=== PATIENT | female | born 1955 | race Caucasian/White ===

== ENCOUNTER → 2021-05-24 10:49 | Outpatient (BNVA) | payer MEDICAID, SELFPAY | PROVIDERS: Visit Provider Family Medicine Adult Medicine | DX: I10 Essential (primary) hypertension (principal); E11.9 Type 2 diabetes mellitus without complications | CPT/HCPCS: 80053; 83036; 84443; 85025 ==

== ENCOUNTER → 2021-06-29 08:32 | Outpatient (BNVA) | payer MEDICAID, SELFPAY | PROVIDERS: Visit Provider Psychiatry & Neurology Psychiatry | DX: F41.9 Anxiety disorder, unspecified (principal); F32.A Depression, unspecified; F32.9 Major depressive disorder, single episode, unspecified; Z03.89 Encounter for observation for other suspected diseases and conditions ruled out | CPT/HCPCS: 90792; 80061 ==

== ENCOUNTER → 2021-08-31 13:38 | Outpatient (BNVA) | payer MEDICAID, SELFPAY | PROVIDERS: Visit Provider Psychiatry & Neurology Psychiatry | DX: F41.9 Anxiety disorder, unspecified (principal); F32.A Depression, unspecified; F32.9 Major depressive disorder, single episode, unspecified; G31.84 Mild cognitive impairment of uncertain or unknown etiology | CPT/HCPCS: 99214 ==

== ENCOUNTER 2021-10-26 13:21 | Inpatient (IN) | payer MEDICAID, SELFPAY ==
[2021-10-26] VITALS (7 sets, daily range): BP systolic 144–207; BP diastolic 86–134; PULSE 78–109; RESP 18–22; TEMP 36.4–37.2; O2SAT 95–99; BMI 30.4
--- NOTE | 2021-10-26 14:51 | PC.PHAR ---
PT UNABLE TO VERIFY DUE TO BEING ALTERED. SCRIPTS VERIFIED USING [facility] AND EXTERNAL MED LIST
--- NOTE | 2021-10-26 14:57 | ED.C_ITS ---
HPI - Psych General: Chief Complaint: Psychiatric Symptoms Stated Complaint: Mental eval Time Seen by Provider: 10/26/21 14:01 Source: patient and family (Daughter and son-in-law) Mode of arrival: ambulatory Limitations: no limitations History of Present Illness: This patient was transported to the emergency department by her family. Her daughter and son-in-law state that over the past several months her behavior is becoming more and more erratic. They state that she is not taking her prescribed medications as prescribed. She currently lives with her daughter. Daughter has transported her here for further evaluation. Patient is unclear why she is in the emergency department she thought she was coming to visit her doctor. She denies any thoughts of self-harm. She denies any visual or auditory hallucinations. She does admit that she has felt depressed in the past and is have been prescribed medications. She relates that she takes her diabetic medications and other prescribed medications as well. She denies any other constitutional complaints at this time. She denies alcohol or drug use. She denies any prior hospitalizations for mental illness. Duration: changing over time and getting worse Associated symptoms: Reports depression; Deny auditory hallucinations, visual hallucinations, homicidal ideation or suic idal ideation Review of Systems Const: Denies: fever(s), chills or body aches Eyes: Denies: change in vision ENMT: Denies: throat pain, odynophagia or change in hearing Card: Denies: chest pain, palpitations, irregular heart rhythm or syncope Resp: Denies: dyspnea, productive cough or non-productive cough GI: Denies: abdominal pain, nausea, vomiting or diarrhea : Denies: flank pain, difficulty voiding, dysuria, urinary frequency, vaginal bleeding or vaginal discharge Musc: Denies: neck pain, back pain, extremity pain or extremity swelling Skin/Breast: Denies: rash or pruritus Neuro: Denies: headache(s), numbness in extremities or weakness in extremities Psych: Reports: anxiety, depression and mood swings; Denies: visual hallucinations, auditory hallucinations, suicidal ideation or homicidal ideation Endo: Denies: polyuria or polydipsia [facility] ED PFSH: Medical History Anxiety Diabetes type 2, controlled Hypertension MDD (major depressive disorder) Mild cognitive impairment Psychiatric care Stool incontinence Surgical History Hx of tonsillectomy Hx of tubal ligation Social History Smoking and tobacco status: never smoked Second hand smoke exposure: No Smoking risk assessment/counseling performed?: No Alcohol intake: never Marital status: Single Current occupational status: disabled Physical Exam Narrative: EXAM NARRATIVE: Patient makes good eye contact. She displays very rapid and pressured speech with flight of ideas. Const: COMMON NORMALS: patient oriented x3 and alert GENERAL APPEARANCE: cooperative and anxious ORIENTATION/CONSCIOUSNESS: Yes awake HENMT: COMMON NORMALS: normocephalic, Normal nasal mucous membranes and turbinates present and moist oral mucous membranes HEAD & SCALP: normocephalic NOSE: Normal nasal mucous membranes and turbinates present Eye: COMMON NORMALS: Equal, round and reactive pupils present, EOMs intact bilaterally and conjunctivae normal CONJUNCTIVA: Yes conjunctivae normal PUPIL: Yes Equal, round and reactive pupils present Neck/C-Spine: COMMON NORMALS: full ROM and supple Chest: COMMONS NORMALS: normal inspection of the chest Resp: COMMON NORMALS: normal respiratory effort, No retractions, No use of accessory muscles and clear to auscultation bilaterally AUSCULTATION: clear to auscultation bilaterally Cardio: COMMON NORMALS: regular rate, regular rhythm and Peripheral pulses 2+ throughout RATE: regular rate RHYTHM: regular rhythm PERIPHERAL PULSES: Peripheral pulses 2+ throughout GI: COMMON NORMALS: Normal to inspection, nondistended, normoactive bowel sounds present : COMMON NORMALS: Yes no CVA tenderness BLADDER/KIDNEY EXAM: Yes no CVA tenderness Back/Pelvis: COMMON NORMALS: no CVA tenderness, thoracic and lumbar spine normal to inspection, no thoracic nor lumbar tenderness and thoraco-lumbar ROM normal Extremity: COMMON NORMALS: normal to inspection, full ROM, capillary refill normal and no pedal edema Neuro: COMMON NORMALS: patient oriented x3, moves all extremities, no sensory deficits noted and gait normal SENSORIUM/ORIENTATION: Yes alert Psych: COMMON NORMALS: cooperative ATTITUDE: Yes evasive and Yes agitated ACTIVITY/MOTOR BEHAVIOR: Yes appropriate eye contact and Yes disorganized behavior SPEECH: Yes excessive, Yes rapid and Yes Pressured speech present MOOD & AFFECT: Yes elevated mood and Yes irritable THOUGHT PROCESS: disorganized and Flight of ideas present ATTENTION/CONCENTRATION: Yes attention grossly intact INSIGHT: Limited insight present (Psych) JUDGEMENT: Limited judgement present (Psych) Skin: COMMON NORMALS: no rashes or lesions noted and turgor normal GENERAL SKIN EXAM: no rashes or lesions noted and turgor normal Course Vital Signs: Vital signs: Vital Signs Temperature 98.3 F 10/26/21 15:32 Pulse Rate 78 10/26/21 15:32 Respiratory Rate 18 10/26/21 15:32 Blood Pressure 207/134 10/26/21 15:32 Pulse Oximetry 99 10/26/21 15:32 MDM - Psych Medical Decision Making Patient with a history of chronic anxiety as well as underlying schizophrenia who has had some behavioral changes over the past weeks brought to the emergency department by her concern family. Medical screening examination was performed and she has no evidence at this time of a concomitant medical condition that might be contributing to her current history of behavioral changes. Discussed with family and patient and they are agreeable to inpatient evaluation and adjustment in medications as indicated. Consulted psychiatry who agreed to admission. Differential Diagnosis Likely chronic schizophrenia and acute anxiety Medical Records I reviewed the patient's medical records. Lab Data I reviewed the patient's lab results. : 10/26/21 16:04 10/26/21 16:04 Laboratory Results WBC 10.0 10^3/uL (4.0-10.0) 10/26/21 16:04 RBC 5.15 10^6/uL (4.1-5.3) 10/26/21 16:04 Hgb 15.0 g/dL (11.5-15.3) 10/26/21 16:04 Hct 44.7 % (37.0-47.0) 10/26/21 16:04 MCV 86.8 fl (81-99) 10/26/21 16:04 MCH 29.1 pg (28.0-34.0) 10/26/21 16:04 MCHC 33.6 g/dL (30.0-36.0) 10/26/21 16:04 RDW 12.9 % (12.1-15.1) 10/26/21 16:04 Plt Count 346 10^3/cmm (130-400) 10/26/21 16:04 MPV 10.3 fL (7.4-10.4) 10/26/21 16:04 Neut % (Auto) 71.3 % 10/26/21 16:04 Lymph % (Auto) 18.2 % 10/26/21 16:04 Emmons % (Auto) 7.7 % 10/26/21 16:04 Eos % (Auto) 1.4 % 10/26/21 16:04 Baso % (Auto) 1.1 % 10/26/21 16:04 Neut # (Auto) 7.10 10^3/uL (1.8-7.7) 10/26/21 16:04 Lymph # (Auto) 1.8 10^3/uL (0.8-4.8) 10/26/21 16:04 Emmons # (Auto) 0.8 10^3/uL (0.2-0.9) 10/26/21 16:04 Eos # (Auto) 0.1 10^3/uL (0.0-0.8) 10/26/21 16:04 Baso # (Auto) 0.1 10^3/uL (0.0-0.1) 10/26/21 16:04 Nucleated RBC % (auto) 0 % 10/26/21 16:04 Nucleated RBCs # 0.0 /100WBC 10/26/21 16:04 Sodium 139 mmol/L (136-145) 10/26/21 16:04 Potassium 4.3 mmol/L (3.5-5.1) 10/26/21 16:04 Chloride 106 mmol/L (98-107) 10/26/21 16:04 Carbon Dioxide 21 mmol/L (22-29) L 10/26/21 16:04 Anion Gap 16.3 (5-19) 10/26/21 16:04 BUN 15 mg/dL (8-23) 10/26/21 16:04 Creatinine 0.8 mg/dL (0.5-0.9) 10/26/21 16:04 GFR Calculation 72.2 mL/min (90-130) L 10/26/21 16:04 Glucose 144 mg/dL (65-115) H 10/26/21 16:04 Calculated Osmolality 291 mOsm/kg (285-295) 10/26/21 16:04 Calcium 10.1 mg/dL (8.5-10.5) 10/26/21 16:04 Total Bilirubin 0.2 mg/dL (0.15-1.2) 10/26/21 16:04 AST 16 U/L (0-32) 10/26/21 16:04 ALT 16 U/L (0-33) 10/26/21 16:04 Alkaline Phosphatase 71 IU/L (35-105) 10/26/21 16:04 Total Protein 7.7 g/dL (6.6-8.7) 10/26/21 16:04 Albumin 4.2 g/dL (3.5-5.2) 10/26/21 16:04 Globulin 3.5 g/dL (1.3-4.6) 10/26/21 16:04 TSH 2.15 uIU/mL (0.27-4.20) 10/26/21 16:04 Salicylates < 0.3 mg/dL (3-10) L 10/26/21 16:04 Acetaminophen < 5.0 ug/mL (10-30) L 10/26/21 16:04 Discharge Plan Discharge Patient Disposition: Admitted As Inpatient Clinical Impression: Chronic schizophrenia, Anxiety, Diabetes type 2, controlled Condition: Stable Prescriptions: No Action (DME) blood-glucose meter Misc See Rx Instructions .Route Qty: 1 0RF Rx Instructions: As directed once daily (DME) Accu-Chek Guide test strips Strip See Rx Instructions .Route Qty: 50 0RF Rx Instructions: As directed, TEST BLOOD SUGAR, ONCE, DAILY. (DME) lancets [BD Ultra Fine Lancets] 33 gauge misc See Rx Instructions .Route Qty: 100 0RF Rx Instructions: As directed, TEST BLOOD SUGAR, ONCE, DAILY. metformin 500 mg tablet 500 mg PO DAILY Qty: 30 5RF quetiapine 200 mg tablet 200 mg PO .HS 30 Days Qty: 30 3RF bupropion HCl 150 mg tablet extended release 24 hr 150 mg PO QAM 30 Days Qty: 30 3RF fluoxetine 40 mg capsule 40 mg PO QAM Qty: 30 3RF lisinopril 20 mg tablet 10 mg PO DAILY Qty: 30 3RF Referrals: Yaya Gómez MD [Primary Care Provider] - Coding Level of Care Code ED [place] [employer] Machine Operator for Chg Fwd Exam Comprehensive
[2021-10-26 16:10] LABS: Basophils # 0.1 10^3/uL (0.0-0.1); Basophils % 1.1 %; Eosinophils # 0.1 10^3/uL (0.0-0.8); Eosinophils % 1.4 %; Hematocrit 44.7 % (37.0-47.0); Lymphocytes # 1.8 10^3/uL (0.8-4.8); Lymphocytes % 18.2 %; Mean Corpuscular HGB Conc 33.6 g/dL (30.0-36.0); Mean Corpuscular Hemoglobin 29.1 pg (28.0-34.0); Mean Corpuscular Volume 86.8 fl (81-99); Mean Platelet Volume 10.3 fL (7.4-10.4); Monocytes # 0.8 10^3/uL (0.2-0.9); Monocytes % 7.7 %; Neutrophils % 71.3 %; Nucleated Red Blood Cells % 0 %; Platelet Count 346 10^3/cmm (130-400); Red Blood Count 5.15 10^6/uL (4.1-5.3); Red Cell Distribution Width 12.9 % (12.1-15.1)
[2021-10-26 16:55] LABS: Alanine Aminotransferase 16 U/L (0-33); Albumin Level 4.2 g/dL (3.5-5.2); Alkaline Phosphatase 71 IU/L (35-105); Anion Gap 16.3 (5-19); Aspartate Amino Transferase 16 U/L (0-32); Blood Urea Nitrogen 15 mg/dL (8-23); Calcium 10.1 mg/dL (8.5-10.5); Carbon Dioxide 21 mmol/L (22-29); Chloride 106 mmol/L (98-107); Globulin 3.5 g/dL (1.3-4.6); Glomerular Filtration Rate 72.2 mL/min (90-130); Glucose 144 mg/dL (65-115); Osmolality Calculated 291 mOsm/kg (285-295); Potassium 4.3 mmol/L (3.5-5.1); Sodium 139 mmol/L (136-145); Thyroid Stimulating Hormone 2.15 uIU/mL (0.27-4.20); Total Bilirubin 0.2 mg/dL (0.15-1.2); Total Protein 7.7 g/dL (6.6-8.7)
[2021-10-26 16:59] LABS: Acetaminophen < 5.0 ug/mL (10-30); Salicylate < 0.3 mg/dL (3-10)
--- NOTE | 2021-10-26 18:38 | PC.ADMIT ---
[facility] Admission Note: The patient,Tennille Barrientos,65 y/o, was given written information regarding hospital policies, unit procedures and contact persons. Patient's smoking status: never smoked. Vital Signs - 8 hr 10/26/21 13:39 10/26/21 14:48 10/26/21 15:32 Temperature 97.6 F 98.3 F 98.3 F Pulse Rate 105 H 78 78 Respiratory Rate 18 18 18 Blood Pressure 184/100 207/134 207/134 Pulse Oximetry 97 99 99 10/26/21 18:32 Temperature 98.5 F Pulse Rate 101 H Respiratory Rate 22 H Blood Pressure 169/116 Pulse Oximetry 95 PT ADMITTED TO NPU FROM ED VIA AT 1813. PT CAN NOT STATE WHY SHE IS HERE. STATES, I'M ONLY HERE FOR A FEW DAYS. PT HAS FLIGHT OF IDEAS, PRESSURED SPEECH AND RAMBLINGS. DIFFICULT TO KEEP ON TRACK. PT UNABLE TO TELL ME THE DATE OR WHERE SHE IS BUT DOES KNOW WHO SHE IS. PT IS VOLUNTARY STATUS. SKIN ASSESSMENT UNREMARKABLE. ABLE TO AMBULATE INDEPENDENTLY. PT HAS NKDA. PT CAN NOT TELL ME WHAT MEDICATIONS SHE TAKES BUT THINKS SHE TAKES PROZAC 40 MG. ORIENTATED TO UNIT. WENT TO DAY AREA TO WATCH TV. ALL QUESTIONS ANSWERED AND SUPPORT VOICED.
[2021-10-26] MEDS: lisinopril 20 mg Tablet PO (19:10)
[2021-10-26] MEDS: hyDROXYzine 25 mg Capsule 50 MG PO (20:23)
[2021-10-27] MEDS: lisinopril 20 mg Tablet PO (08:41)
[2021-10-27 13:32] VITALS: BP 170/93; PULSE 107; RESP 18; TEMP 36.6; O2SAT 97
--- NOTE | 2021-10-27 13:54 | P.NPUHP_ITS ---
Providers/Chief Complaint Admitting Physician: Casey Carter MD Primary Care Provider: Yaya Gómez MD Chief Complaint: Mental eval HPI NPU History of Present Illness Tennille Barrientos is a 65 year old female who presented to the emergency department with the following report: Chief Complaint: Psychiatric Symptoms Stated Complaint: Mental eval Time Seen by Provider: 10/26/21 14:01 Source: patient and family (Daughter and son-in-law) Mode of arrival: ambulatory Limitations: no limitations History of Present Illness: This patient was transported to the emergency department by her family. Her daughter and son-in-law state that over the past several months her behavior is becoming more and more erratic. They state that she is not taking her prescribed medications as prescribed. She currently lives with her daughter. Daughter has transported her here for further evaluation. Patient is unclear why she is in the emergency department she thought she was coming to visit her doctor. She denies any thoughts of self-harm. She denies any visual or auditory hallucinations. She does admit that she has felt depressed in the past and is have been prescribed medications. She relates that she takes her diabetic medications and other prescribed medications as well. She denies any other constitutional complaints at this time. She denies alcohol or drug use. She denies any prior hospitalizations for mental illness. Duration: changing over time and getting worse Associated symptoms: Reports depression; Deny auditory hallucinations, visual hallucinations, homicidal ideation or suicidal ideation. He was admitted to the neuropsychiatric unit for definitive treatment of those issues.She presents today reporting she doesn?t believe she needs to be here. This is a 65 year old female initially admitted voluntarily. The patient was transported to the emergency department by her family and her son and [id number] report that her behavior has been more erratic and she had been non compliant with her medications for anxiety and depression. There had been reports that she was having increased problems with her memory. She denies any thoughts of hurting herself during the interview. She denies auditory or visual hallucinations. She states that her daughter had accused her of walking around the house naked but endorses she had done nothing of the sort. She reports that she is new to [place] [facility] [place] and reports that she had come here approximately 6 months ago to live here. She endorses having been psychiatrically hospitalized 3 or 4 times approximately 20 years ago. She was not able to elucidate the reason for her hospitalization but reports she had been treated previously for depression and anxiety. Outpatient treatment appeared significant from a recent follow up at [facility] by Zabrina Francisco in June 2021 with a history of treatment for anxiety, depression and cognitive impairment. She denies any tobacco, reports alcohol in the past, denies marijuana currently but reports she tried in the past, or any other illicit drug use. She reports she grew up in [place] most of her life until she resumed living with her daughter approximately 2 months ago. Psychiatric History: As above. Substance Abuse History: As above Family History: There is significant depression in her children but no reports of mental health or addictions issues on either side of her extended family. Developmental History: She did not report any developmental delays and denied needing any speech therapy, learning support, emotional support or special education classes. Psychosocial History: She was born in [place] and raised by both of her parents. Her father was in the [place] and she has one older sister who is a product of the same union. She graduated from high school. She has been and once, has 4 child christofer, has never been in the , and endorses being spiritism Legal History: She did not report any legal history during the interview. Medical History: Medical history is significant for diabetes and bronchitis. Surgical history is significant for tonsillectomy. She is allergic to yellow jacket stings. Meds NPU Home Medications Medication Instructions Recorded Confirmed Last Taken Type blood sugar diagnostic (Accu-Chek #50 ea 05/24/21 10/26/21 Unknown Rx Guide test strips) blood-glucose meter #1 ea 05/24/21 10/26/21 Unknown Rx lancets 33 gauge (BD Ultra Fine #100 ea 05/24/21 10/26/21 Unknown Rx Lancets) metformin 500 mg tablet 500 mg PO DAILY #30 tab 07/04/21 10/26/21 Unknown Rx bupropion HCl 150 mg 24 hr tablet, 150 mg PO QAM 30 Days #30 tab 08/31/21 10/26/21 Unknown Rx extended release fluoxetine 40 mg capsule 40 mg PO QAM #30 cap 08/31/21 10/26/21 Unknown Rx quetiapine 200 mg tablet 200 mg PO .HS 30 Days #30 tab 08/31/21 10/26/21 Unknown Rx lisinopril 20 mg tablet 10 mg PO DAILY #30 tab 10/19/21 10/26/21 Unknown Rx Allergies Allergy/AdvReac Type Severity Reaction Status Date / Time No Known Allergies Allergy Verified 10/26/21 14:55 PFSH NPU PFSH: Medical History Anxiety Diabetes type 2, controlled Hypertension MDD (major depressive disorder) Mild cognitive impairment Psychiatric care Stool incontinence Surgical History Hx of tonsillectomy Hx of tubal ligation Social History Smoking and tobacco status: never smoked Second hand smoke exposure: No Smoking risk assessment/counseling performed?: No Alcohol intake: never Marital status: Single Current occupational status: disabled Mental Status Exam MSE Comments: This is a well nourished, well developed female in hospital scrubs with adequate grooming and eye contact. No abnormal movements. Cooperative with exam in no acute distress. Speech was somewhat rapid with increased push. Mood described as okay, affect is congruent with some measure of increased anxiety. Thought process, mostly organized. Thought content: patient denies suicidal or homicidal ideation, no delusions reported but some paranoid process noted, and denies auditory or visual hallucinations. Attention and concentration appear somewhat intact and memory appeared limited though none were formally tested. She is alert and oriented three times but did not orient to time. Insight and judgment are limited. Impulse control is limited. Vitals/I&O/Wt Last Vital Signs Temp 97.8 F 10/27/21 13:32 Pulse 107 H 10/27/21 13:32 Resp 18 10/27/21 13:32 BP 170/93 10/27/21 13:32 Pulse Ox 97 10/27/21 13:32 Weight last 48 hrs Weight 83.007 kg Data NPU : 10/26/21 16:04 10/26/21 16:04 A&P Assessment and plan (1) Dementia associated with other underlying disease with behavioral disturbance: Status: Acute (2) Bipolar disorder, current condition not specified as either manic or depressive: Status: Acute (3) Anxiety: Status: Acute (4) Mild cognitive impairment: Status: Acute Plan This is a 65 year old female with a past history of depression and anxiety who has been reportedly non compliant with her medications, appearing to have dif ficulties with her memory at this time requiring a more detailed mental status examination to rule out dementia. 1. Restart Wellbutrin 150 mg po q am and Prozac 40 mg po q daily 2. Encourage individual, group and milieu therapy 3. Continue q-15 minute check for safety 4. Will obtain further collateral information from the patient?s family. Involuntary Hold Information 96 Hour Hold: 96 Hour Involuntary Admission: No Attestations NPU Medical Necessity Statement*: Inpatient hospitalization is medically necessary and the clinically appropriate intervention at this time. We will monitor medications and make changes as indicated. Patient will be in the hospital for over two midnights. Likely length of stay is three to five days. Coding Level of Care Code Acute Adjustment Examiner for Teresa Chaidez Diagnoses Dementia associated with other underlying disease with behavioral disturbance F02.81 Bipolar disorder, current condition not specified as either manic or depressive F34.0 Anxiety F41.9 Mild cognitive impairment G31.84
[2021-10-27 19:59] VITALS: BP 153/89; PULSE 84; RESP 17; O2SAT 100
[2021-10-27] MEDS: trazodone 50 mg Tablet PO (21:07)
[2021-10-28 06:00] VITALS: BP 107/70; PULSE 74; RESP 16; O2SAT 99
[2021-10-28] MEDS: lisinopril 20 mg Tablet PO (08:57)
--- NOTE | 2021-10-28 11:12 | W.PM.NPUPNS ---
Subjective NPU Subjective: 65-year-old single white female admitted with increased confusion a history of mild cognitive previous problems with memory out of behavior daughter's home.The patient had been noncompliant with her medications including wellbutrin and prozac prior to admission. Patient had recognized previous medication trials including [place] and Depakote with her treatment providers in [place]. Staff notes that the patient had slept very few hours last night. Mental Status Exam MSE Comments: Tennille appeared her stated age, her gait was adequate, her hygiene was poor, there was no evidence of any abnormal involuntary motor movements or tics, Speech: increased pressure, Mood: allright, Affect: incongruent and flat, thought process: tangential at times, she appeared at times to be talking to herself and appeared highly distractable. MMSE , 1/3 recall of words at 5 minutes, not oriented to month, date or day of the week, 0/1 on construction of intersecting pentagons, impaired performance on serial 7's. Vitals/I&O/Wt Last Vital Signs Temp 97.7 F 10/28/21 20:25 Pulse 77 10/28/21 20:25 Resp 18 10/28/21 20:25 BP 147/69 10/28/21 20:25 Pulse Ox 98 10/28/21 20:25 Weight last 48 hrs Weight 84.912 kg Data NPU : 10/26/21 16:04 10/26/21 16:04 A&P Assessment and plan (1) Bipolar disorder, current condition not specified as either manic or depressive: Status: Acute (2) Dementia associated with other underlying disease with behavioral disturbance: Status: Acute (3) Stool incontinence: Status: Acute (4) Anxiety: Status: Acute Plan 65 year old white female with extended hx of mental health issues, hx of multiple hospitalizations with increase decline in functioning since move to [place] in last few months. Continue with acute inpatient hospitalization Further clarify cognitive impairement issue, evaluate for alzheimer's disease, consider memantine She continues to show evidence of manic symptoms.-Will initiate seroquel xr 50mg in am. Monitor for side effects of medication Involuntary Hold Information 96 Hour Hold: 96 Hour Involuntary Admission: No Attestations NPU Medical Necessity Statement*: She continues to require acute inpatient hospitalization for at least 2 midnights, likely continued stay 4-6 days. Coding Level of Care Code Acute Freight Rate Analyst for Chg Fwd Diagnoses Bipolar disorder, current condition not specified as either manic or depressive F34.0 Dementia associated with other underlying disease with behavioral disturbance F02.81 Stool incontinence R15.9 Anxiety F41.9
[2021-10-28 14:00] VITALS: BP 117/71; PULSE 83; RESP 17; TEMP 36.4; O2SAT 98
[2021-10-28] MEDS: calcium carbonate 500 mg Chew Tablet 1000 MG PO (16:43)
[2021-10-28] MEDS: trazodone 50 mg Tablet PO (20:22)
[2021-10-28] MEDS: quetiapine XR (24HR) 50 mg Tablet PO (20:22)
[2021-10-28 20:25] VITALS: BP 147/69; PULSE 77; RESP 18; TEMP 36.5; O2SAT 98
[2021-10-29 06:00] VITALS: BP 115/64; PULSE 66; RESP 18; TEMP 36.4; O2SAT 97; BMI 31.1
[2021-10-29] MEDS: lisinopril 20 mg Tablet PO (07:48)
[2021-10-29 14:00] VITALS: BP 149/79; PULSE 86; RESP 17; TEMP 36.6; O2SAT 100
--- NOTE | 2021-10-29 14:30 | W.PM.NPUPNS ---
Subjective NPU Subjective: 65-year-old single white female admitted with increased confusion and a history of mild cognitive previous problems who was engaging in unusual behavior in her daughter's home.The patient had been noncompliant with her medications including wellbutrin and prozac prior to admission.? Patient had recognized previous medication trials including [place] and Depakote with her treatment providers in [place].? She continues to remain confused on the unit. She she had slept a little better with the initiation of Seroquel XR 50 mg last night. She continues to report that she has never been treated with for bipolar disorder. She continues to appear to have conversations with herself. Mental Status Exam MSE Comments: She is a disheveled white female who was polite on interview she. Very talkative with increased rate of speech with significant tangential thought process. There was no active evidence of delusional thinking. She at times also appeared circumstantial in her thinking. She was alert to person, year , but not month or day of the week. Her gait appeared normal, She had extremely poor performance on her clock drawing exam unable to appropriately put hands on a clock in the center. Her mood was described as okay, Her affect remained somewhat anxious as she was pacing the halls. Vitals/I&O/Wt Last Vital Signs Temp 97.8 F 10/30/21 14:00 Pulse 83 10/30/21 14:00 Resp 16 10/30/21 14:00 BP 171/79 10/30/21 14:00 Pulse Ox 99 10/30/21 14:00 Weight last 48 hrs Weight 84.912 kg Weight 84.912 kg Data NPU : 10/26/21 16:04 10/26/21 16:04 A&P Assessment and plan (1) Bipolar disorder, current condition not specified as either manic or depressive: Status: Acute (2) Dementia associated with other underlying disease with behavioral disturbance: Status: Acute (3) Mild cognitive impairment: Status: Acute Plan 65 year old white female with extended hx of mental health issues, hx of multiple hospitalizations with increase decline in functioning since move to [place] in last few months.? Continue with acute inpatient hospitalization Further clarify cognitive impairement issue, evaluate for alzheimer's disease, consider memantine She continues to show evidence of manic symptoms.-Will increase seroquel xr 100mg in pm. Monitor for side effects of medication? Involuntary Hold Information 96 Hour Hold: 96 Hour Involuntary Admission: No Attestations NPU Medical Necessity Statement*: She continues to require acute inpatient hospitalization for at least 2 midnights, likely continued stay 4-6 days.? Coding Level of Care Code Established Pt Acute [employer] Teacher for Teresa Fwd Patient Type Established History Problem Focused Exam Problem Focused Medical Decision Making Straight Forward Diagnoses Bipolar disorder, current condition not specified as either manic or depressive F34.0 Dementia associated with other underlying disease with behavioral disturbance F02.81 Mild cognitive impairment G31.84
[2021-10-29] MEDS: calcium carbonate 500 mg Chew Tablet 1000 MG PO (15:00)
[2021-10-29 20:05] VITALS: BP 150/89; PULSE 84; RESP 17; TEMP 36.9; O2SAT 97
[2021-10-29] MEDS: trazodone 50 mg Tablet PO (20:23)
[2021-10-29] MEDS: quetiapine XR (24HR) 50 mg Tablet PO (20:23)
[2021-10-30 06:00] VITALS: BP 162/79; PULSE 85; RESP 18; TEMP 36.2; O2SAT 97
--- NOTE | 2021-10-30 08:19 | PC.NURSE ---
IN BED RESTING. DENIES PAIN. DENIES SI/HI AND AVH AT THIS TIME. A&O TIMES THREE. CONTINUES TO BE WITHDRAWN AND ISOLATES AT TIMES. SUPPORT VOICED.
[2021-10-30] MEDS: lisinopril 20 mg Tablet PO (09:08)
[2021-10-30 14:00] VITALS: BP 171/79; PULSE 83; RESP 16; TEMP 36.6; O2SAT 99
--- NOTE | 2021-10-30 14:45 | P.NPUPN_ITS ---
Subjective NPU Subjective: 65-year-old single white female admitted with increased confusion and a? history of mild cognitive previous problems who was engaging in unusual behavior in her? daughter's home including walking around the home naked. She continues to require some redirection on the unit, She reports no sided effects from her medication. Patient denies racing thoughts. She reports that she does not have problems with her memory and was able to provide the date today. She denies any thoughts to hurt herself or others.? Mental Status Exam MSE Comments: She is a casually dressed thin woman who appears her stated age. She was wandering and appeared friendly and appeared in no acute distress. Her mood was described as all right and her affect appeared restricted her thought process appeared tangential again her thought content showed no evidence of homicidal or suicidal ideation there was no clear evidence of delusional thinking attention appeared variable her speech was rapid in regards to rate she was difficult to interrupt she was unable to describe why she had been hospitalized during her conversation the. She was alert and oriented to person place and time today. Vitals/I&O/Wt Last Vital Signs Temp 97.8 F 10/30/21 14:00 Pulse 83 10/30/21 14:00 Resp 16 10/30/21 14:00 BP 171/79 10/30/21 14:00 Pulse Ox 99 10/30/21 14:00 Weight last 48 hrs Weight 84.912 kg Weight 84.912 kg Data NPU : 10/26/21 16:04 10/26/21 16:04 A&P Assessment and plan (1) Bipolar disorder, current condition not specified as either manic or depressive: Status: Acute (2) Dementia associated with other underlying disease with behavioral disturban ce: Status: Acute Plan 65 year old white female with extended hx of mental health issues, hx of multiple hospitalizations with increase decline in functioning since move to [place] in last few months.? Continue with acute inpatient hospitalization Further clarify cognitive impairement issue, evaluate for alzheimer's disease, consider memantine She continues to show evidence of manic symptoms.-Will increase seroquel xr 150mg in pm.? Monitor for side effects of medication? Involuntary Hold Information 96 Hour Hold: 96 Hour Involuntary Admission: No Attestations NPU Medical Necessity Statement*: She continues to require acute inpatient hospitalization to prevent further decompensation with likely continued stay 4-6 days.? 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
[2021-10-30] MEDS: quetiapine XR (24HR) 50 mg Tablet 100 MG PO ×2 (18:24→20:40)
[2021-10-30] MEDS: calcium carbonate 500 mg Chew Tablet 1000 MG PO (18:28)
--- NOTE | 2021-10-30 18:29 | PC.NURSE ---
PRN MEDICATION PT REQUEST SOMETHING FOR HEARTBURN. THIS RN ADMINISTERED 2 TUMS ORDERED. SEE MAR FOR DETAILS.
[2021-10-30] MEDS: trazodone 50 mg Tablet PO (20:40)
[2021-10-30 22:00] VITALS: BP 156/82; PULSE 89; RESP 16; TEMP 36.6; O2SAT 94
--- NOTE | 2021-10-30 23:59 | PC.NURSE ---
at 2039, pt requested med for sleep, trazodone 50mg po given. pt resting quietly with both eyes closed at this time.
[2021-10-31 06:00] VITALS: BP 125/87; PULSE 85; RESP 18; TEMP 36.4
[2021-10-31] MEDS: lisinopril 20 mg Tablet PO (08:24)
--- NOTE | 2021-10-31 13:07 | P.NPUPN_ITS ---
Subjective NPU Subjective: 65-year-old single white female admitted with increased confusion and a? history of mild cognitive impairment who per daughter had been engaging in unusual behavior in her? daughter's home including walking around the home naked. She appeared friendly on the unit and appeared more social today. She has been compliant with taking her medications and stated that she felt a bit better today. She had reported improved sleep while taking her Seroquel. She stated that she had always been compliant with her medications despite what her daughter had stated. She reported that she was trying to forget about what her daughter said. Mental Status Exam MSE Comments: She is a casually dressed thin woman who appears her stated age.? She appeared friendly and in no acute distress.? Her mood was described as better and her affect appeared restricted in range. Her thought process serenity eared less tangential today. Her thought content showed no evidence of homicidal or suicidal ideation. There was no clear evidence of delusional thinking. Her attention appeared to be improving. Her speech showed increased push but appeared slower than than the previous day. . She was unable to describe why she had been hospitalized at this time. he was alert and oriented to person place and time and date today. Vitals/I&O/Wt Last Vital Signs Temp 98 F 10/31/21 14:00 Pulse 80 10/31/21 14:00 Resp 17 10/31/21 14:00 BP 165/95 10/31/21 14:00 Pulse Ox 100 10/31/21 14:00 Data NPU : 10/26/21 16:04 10/26/21 16:04 A&P Assessment and plan (1) Bipolar disorder, current condition not specified as either manic or depressive: Status: Acute (2) Dementia associated with other underlying disease with behavioral disturbance: Status: Acute (3) Anxiety: Status: Acute Plan 65 year old white female with extended hx of mental health issues, hx of multiple hospitalizations with increase decline in functioning since move to [place] in last few months.? Continue with acute inpatient hospitalization Further clarify cognitive impairement issue, evaluate for alzheimer's disease, consider memantine She continues to show evidence of manic symptoms.-Will increase seroquel xr 200mg in pm tommorow. .? Monitor for side effects of medication? Involuntary Hold Information 96 Hour Hold: 96 Hour Involuntary Admission: No Attestations NPU Medical Necessity Statement*: She continues to require acute inpatient hospitalization to prevent further decompensation with? likely continued stay 4- 6 days.? 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
[2021-10-31 14:00] VITALS: BP 165/95; PULSE 80; RESP 17; TEMP 36.6; O2SAT 100
[2021-10-31 19:52] VITALS: BP 152/94; PULSE 86; RESP 20; TEMP 36.6; O2SAT 99
[2021-10-31] MEDS: quetiapine XR (24HR) 50 mg Tablet 150 MG PO (20:21)
[2021-10-31] MEDS: calcium carbonate 500 mg Chew Tablet 1000 MG PO (20:57)
[2021-11-01 06:00] VITALS: BP 118/76; PULSE 84; RESP 16; TEMP 36.7; O2SAT 97
--- NOTE | 2021-11-01 09:07 | PC.NURSE ---
PT WAS OBSERVED TO BE IN BATHROOM WITH FECES ALL OVER BODY. PT HAD FECES ON BREAST, IN HAIR, ON BOTTOM AND LEGS. THIS RN ATTEMPTED TO GET INTO SHOWER BUT PT DECLINED. PT STAYED IN BATHROOM CLEANING UP MY MESS. : PT WAS OBSERVED PUTTING FECES ON BREAST AND WAS NOT CLEANING THE FECES UP. PT WAS TALKED INTO LEAVING THE BATHROOM AFTER MULTIPLE ATTEMPTS. PT WAS ESCALATED, ANGRY, HAVING PRESSURED SPEECH AND DID NOT WANT TO GET INTO THE SHOWER. PT DID GET INTO THE SHOWER, HAD ANOTHER LOOSE BM. THEN SHOWERED. HOUSE CLEANING WAS CALLED TO CLEAN BATHROOMS AND HALLWAYS WHERE PT HAD DEFICATED. PT WOULD NOT PARTICIPATE IN EXAM DUE TO BEING SO UPSET. PT DID EVETUALLY CALM AND DENIED PAIN. DENIES SI/HI AND AVH AT THIS TIME. MED NURSE NOTIFIED TO ADMINISTER ANXIETY MEDICATIONS AND ANTI DIARRHEAL. SUPPORT VOICED.
[2021-11-01] MEDS: hyDROXYzine 25 mg Capsule 50 MG PO (09:20)
[2021-11-01] MEDS: lisinopril 20 mg Tablet PO (09:20)
[2021-11-01] MEDS: loperamide 2 mg Capsule PO (09:20)
--- NOTE | 2021-11-01 09:21 | PC.NURSE ---
PRN VISTARIL & IMODIUM VISTARIL 50 MG GIVEN PO PER PT C/O ANXIETY, IMODIUM 2 MG GIVEN PO PER PT C/O LOOSE STOOL
--- NOTE | 2021-11-01 12:44 | PC.NURSE ---
NEW ORDERS DURING AM MEETING DR. EASTMAN GAVE NEW ORDERS TO INCREASE SEROQUEL TO 200 MG PO AT 1800. THIS RN DISCONTINED 150 MG SEROQUEL AT AM VERBALLY ORDERED. EDUCATED PT OF NEW ORDERS. ALL QUESTIONS ANSWERED AND SUPPORT VOICED.
--- NOTE | 2021-11-01 13:27 | P.NPUPN_ITS ---
Subjective NPU Subjective: 65-year-old single white female admitted with increased confusion and a? history of mild cognitive impairment who per daughter had been engaging in? unusual behavior in her? daughter's home including walking around the home naked.? She had reported that she did not think she had been doing poorly and did not understand why she was hospitalized in the first place. She reports that she had contacted her daughter that she was residing with and had a good conversation. Patient reports sleep has been better and reports not feeling as depressed. She tolerated seroquel 150mg xr in am without difficulties. She is not endorsing any thoughts of hurting herself or others. Mental Status Exam MSE Comments: Casually dressed white female who appeared her stated age. She was alert and oriented to person place time and date today her gait appeared adequate. Her hygiene was poor. Her mood was described as better her affect appeared flat still her thought process was less tangential less circumstantial and more linear. Her attention span appeared improved her speech showed less evidence of increased rate as it appeared significantly slower than in the past few days. There is no evidence of psychomotor agitation or psychomotor retardation. Her insight was poor her judgment appeared to be improving. Vitals/I&O/Wt Last Vital Signs Temp 98.0 F 11/01/21 06:00 Pulse 84 11/01/21 06:00 Resp 16 11/01/21 06:00 BP 118/76 11/01/21 06:00 Pulse Ox 97 11/01/21 06:00 Data NPU : 10/26/21 16:04 10/26/21 16:04 A&P Assessment and plan (1) Bipolar disorder, current condition not specified as either manic or dep ressive: Status: Acute (2) Dementia associated with other underlying disease with behavioral disturbance: Status: Acute Plan 65 year old white female with extended hx of mental health issues, hx of multiple hospitalizations with increase decline in functioning since move to [place] in last few months.? Continue with acute inpatient hospitalization Further clarify cognitive impairement issue, evaluate for alzheimer's disease, consider memantine She continues to show evidence of manic symptoms but appears to be improving.- Will increase seroquel xr 200mg in pm tonight .? .? Monitor for side effects of medication Involuntary Hold Information 96 Hour Hold: 96 Hour Involuntary Admission: No Attestations NPU Medical Necessity Statement*: She continues to require acute inpatient hos pitalization to prevent further decompensation with? likely continued stay 1-3 days. ? 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
[2021-11-01 14:00] VITALS: BP 138/85; PULSE 85; RESP 18; TEMP 36.8; O2SAT 100
[2021-11-01] MEDS: quetiapine XR (24HR) 50 mg Tablet 200 MG PO (16:57)
[2021-11-01 19:44] VITALS: BP 147/81; PULSE 92; RESP 16; TEMP 36.8; O2SAT 99
[2021-11-02 06:00] VITALS: BP 122/76; PULSE 80; RESP 16; TEMP 36.6; O2SAT 96
[2021-11-02] MEDS: lisinopril 20 mg Tablet PO (07:41)
[2021-11-02 14:00] VITALS: BP 155/82; PULSE 84; RESP 16; TEMP 36.8; O2SAT 96
--- NOTE | 2021-11-02 15:31 | P.NPUPN_ITS ---
Subjective NPU Subjective: 65-year-old single white female admitted with increased confusion and a? history of mild cognitive impairment who per daughter had been engaging in? unusual behavior in her? daughter's home including walking around the home naked.? The patient continue to report make that she was feeling better. She continued to be somewhat evasive in regards to explaining why she had come into the hospital. She had reported at times having problems with her memory. She reports that her sleep has been better with her medication. She was participating more in groups and reported that she did not wish to return to live with her family. Mental Status Exam MSE Comments: Casually dressed white female who appeared her stated age.? She was alert and oriented to person place time and date today her gait appeared adequate.? She continued to engage in self talk at times under her breath. Her hygiene was poor.? Her mood was described as better her affect appeared flat still her thought process was less tangential and less circumstantial with increased linearity. Her attention span appeared improved. Her speech showed less evidence of increased rate as it appeared significantly slower. There is no evidence of psychomotor agitation or psychomotor retardation.? Her insight was poor her judgment appeared to be improving. Vitals/I&O/Wt Last Vital Signs Temp 98.2 F 11/02/21 14:00 Pulse 84 11/02/21 14:00 Resp 16 11/02/21 14:00 BP 155/82 11/02/21 14:00 Pulse Ox 96 11/02/21 14:00 Data NPU : 10/26/21 16:04 10/26/21 16:04 A&P Assessment and plan (1) Bipolar disorder, current condition not specified as either manic or depressive: Status: Acute (2) Dementia associated with other underlying disease with behavioral disturbance: Status: Acute (3) Chronic schizophrenia: Status: Acute (4) Stool incontinence: Status: Acute (5) Mild cognitive impairment: Status: Acute (6) Anxiety: Status: Acute (7) MDD (major depressive disorder): Status: Acute (8) Hypertension: Status: Acute (9) Diabetes type 2, controlled: Status: Acute Plan 65 year old white female with extended hx of mental health issues, hx of multiple hospitalizations with increase decline in functioning since move to [place] in last few months.? Continue with acute inpatient hospitalization She continues to show evidence of manic symptoms but appears to be improving.- Plan further increase in seroquel xr up to 250mg at night to target rosendo/depr ession. ? Monitor for side effects of medication Involuntary Hold Information 96 Hour Hold: 96 Hour Involuntary Admission: No Attestations NPU Medical Necessity Statement*: She continues to require acute inpatient hospitalization to prevent further decompensation with? likely continued stay 1- 3 days. ? 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
[2021-11-02] MEDS: quetiapine XR (24HR) 50 mg Tablet 200 MG PO (16:25)
[2021-11-02] MEDS: loperamide 2 mg Capsule PO (16:25)
--- NOTE | 2021-11-02 16:26 | PC.NURSE ---
PRN IMODIUM 2 MG GIVEN PO PER PT C/O LOOSE STOOL
[2021-11-02 20:21] VITALS: BP 145/87; PULSE 91; RESP 18; TEMP 36.5; O2SAT 97
[2021-11-02 21:35] VITALS: BP 145/87; PULSE 91; RESP 18; TEMP 36.5; O2SAT 97
[2021-11-03 06:00] VITALS: BP 123/80; PULSE 86; RESP 17; TEMP 36.6; O2SAT 98
[2021-11-03] MEDS: lisinopril 20 mg Tablet PO (09:14)
--- NOTE | 2021-11-03 11:33 | P.NPUPN_ITS ---
Subjective NPU Subjective: 65-year-old single white female admitted with increased confusion and a?history of mild cognitive impairment who per daughter had been engaging in?unusual behavior in her?daughter's home including walking around the home naked.?The patient continue to report make that she was feeling better.? She reports today that she is feeling better. Patient reports no feelings of hopelessness. Patient reports no side effects from medication. She continues to struggle with activities of daily living. Patient reports that she occasionally has jumbled thoughts, She reports continued low energy and concentration. Mental Status Exam MSE Comments: Casually dressed white female who appeared her stated age.? She was alert and oriented to person place time and date. Her gait appeared ad equate.? She was engaging in self talk at times under her breath. ? Her hygiene was poor.? Her mood was described as better her affect appeared flat still her thought process was less tangential and less circumstantial with increased linearity. ? Her attention span appeared improved. ? Her speech showed less evidence of increased rate as it appeared significantly slower. ? There was some continued psychomotor retardation.? Her insight was poor her judgment appeared to be improving. Vitals/I&O/Wt Last Vital Signs Temp 98 F 11/03/21 13:29 Pulse 97 11/03/21 13:29 Resp 17 11/03/21 13:29 BP 166/84 11/03/21 13:29 Pulse Ox 100 11/03/21 13:29 Data NPU : 10/26/21 16:04 10/26/21 16:04 A&P Assessment and plan (1) Bipolar disorder, current condition not specified as either manic or depressive: Status: Acute (2) Dementia associated with other underlying disease with behavioral disturbance: Status: Acute (3) Chronic schizophrenia: Status: Acute (4) Stool incontinence: Status: Acute (5) Mild cognitive impairment: Status: Acute (6) Anxiety: Status: Acute (7) MDD (major depressive disorder): Status: Acute Plan 65 year old white female with extended hx of mental health issues, hx of multiple hospitalizations with increase decline in functioning since move to [place] in last few months.? Continue with acute inpatient hospitalization She continues to show evidence of manic symptoms but appears to be improving.- Plan Increase seroquel xr up to 300mg at night to target rosendo/depression.? Monitor for side effects of medication Involuntary Hold Information 96 Hour Hold: 96 Hour Involuntary Admission: No Attestations NPU Medical Necessity Statement*: She continues to require acute inpatient hospitalization to prevent further decompensation with? likely continued stay 4- 6days.? 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
[2021-11-03 13:29] VITALS: BP 166/84; PULSE 97; RESP 17; TEMP 36.6; O2SAT 100
[2021-11-03] MEDS: quetiapine 100 mg Tablet 200 MG PO (18:29)
[2021-11-03] MEDS: quetiapine XR (24HR) 50 mg Tablet PO (18:30)
[2021-11-03 19:34] VITALS: BP 144/80; PULSE 108; RESP 19; TEMP 36.8; O2SAT 98
[2021-11-04 05:57] VITALS: BP 122/84; PULSE 95; RESP 16; TEMP 36.6; O2SAT 98
[2021-11-04] MEDS: lisinopril 20 mg Tablet PO (09:06)
--- NOTE | 2021-11-04 12:21 | P.NPUPN_ITS ---
Subjective NPU Subjective: 65-year-old single white female admitted with increased confusion and a?history of mild cognitive impairment who per daughter had been engaging in?unusual behavior in the ?daughter's home including walking around the home naked along with staying up all night while speaking incessantly. ?The patient reports that she is hopeful about living with her son instead of returning to her daughter's home. She reports that her thoughts are still moving fast and she reports that she continues to struggle with being distracted easily. She reports no depressed mood at this time. She reports that she has been sleeping better. She has been able to manage her activities of daily living better. She reports continued low energy and concentration.? Mental Status Exam MSE Comments: Casually dressed white female who appeared her stated age.? She was alert and oriented to person place time and date. ? Her gait appeared adequate.? She was engaging?in self talk at times under her breath to herself. ? Her hygiene was improved today.? Her mood was described as better. Her affect appeared restricted. Her thought process was less tangential and more linear. ? Her attention span appeared improved. ? Her speech showed less evidence of increased rate as it appeared significantly slower. ? There was some continued mild psychomotor retardation.? Her insight was poor. Her judgment appeared to be improving. There was no evidence of delusional thinking. Vitals/I&O/Wt Last Vital Signs Temp 98 F 11/04/21 13:40 Pulse 96 11/04/21 13:40 Resp 17 11/04/21 13:40 BP 170/90 11/04/21 13:40 Pulse Ox 99 11/04/21 13:40 Data NPU : 10/26/21 16:04 10/26/21 16:04 A&P Assessment and plan (1) Bipolar disorder, current condition not specified as either manic or depressive: Status: Acute (2) Dementia associated with other underlying disease with behavioral disturbance: Status: Acute (3) Stool incontinence: Status: Acute (4) Mild cognitive impairment: Status: Acute (5) Anxiety: Status: Acute Plan 65 year old white female with extended hx of mental health issues, hx of multip le hospitalizations with increase decline in functioning since move to [place] in last few months.? Continue with acute inpatient hospitalization She continues to show evidence of manic symptoms but appears to be improving.- Plan Increase? seroquel xr up to 300mg at night to target rosendo/depression.? Monitor for side effects of medication. Continue individual/milieu/group therapy Involuntary Hold Information 96 Hour Hold: 96 Hour Involuntary Admission: No Attestations NPU Medical Necessity Statement*: She continues to require acute inpatient hospitalization to prevent further decompensation with? likely continued stay 2- 3 days. 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
[2021-11-04 13:40] VITALS: BP 170/90; PULSE 96; RESP 17; TEMP 36.6; O2SAT 99
[2021-11-04] MEDS: quetiapine XR (24HR) 50 mg Tablet 300 MG PO (17:05)
[2021-11-04 19:51] VITALS: BP 162/88; PULSE 95; RESP 16; TEMP 36.8; O2SAT 100
[2021-11-05 06:00] VITALS: BP 146/87; PULSE 84; RESP 18; TEMP 36.6; O2SAT 100
--- NOTE | 2021-11-05 08:22 | PC.NURSE ---
UP IN ROOM SITTING ON BED. DENIES PAIN. DENIES SI/HI AND AVH AT THIS TIME. PT STATES SHE SLEPT WELL AND IS FEELING BETTER. PT CALM AND COOPERATIVE WITH ASSESSMENT. SUPPORT VOICED.
[2021-11-05] MEDS: lisinopril 20 mg Tablet PO (08:26)
--- NOTE | 2021-11-05 11:42 | W.PM.NPUPNS ---
Subjective NPU Subjective: 65-year-old single white female admitted with increased confusion and a?history of mild cognitive impairment who per daughter had been engaging in?unusual behavior in the ?daughter's home including walking around the home naked along with staying up all night while speaking incessantly.?Sleeping throughout the night per staff. NO side effects from medication reported. Patient reports continued worry about where she will live when discharged. She reports feeling confident that she can take the seroquel xr at night when discharged. She denies racing thoughts, and minimized thoughts of hurting herself or others. ? Mental Status Exam MSE Comments: Casually dressed white female who appeared her stated age.? She was alert and oriented to person place time and date. ? Her gait appeared adequate.? She was engaging?in less self talk at times under her breath to herself. ? ? Her hygiene was improved today.? Her mood was described as good. Her affect appeared restricted.? Her thought process was less tangential and more linear.? ? Her attention span appeared improved. ? Her speech showed less evidence of increased rate as it appeared significantly slower. ? There was some continued mild psychomotor retardation.? Her insight was poor. Her judgment appeared to be improving. There was no evidence of delusional thinking.? Vitals/I&O/Wt Last Vital Signs Temp 98 F 11/05/21 13:54 Pulse 90 11/05/21 13:54 Resp 17 11/05/21 13:54 BP 140/74 11/05/21 13:54 Pulse Ox 100 11/05/21 13:54 Weight last 48 hrs Weight 86.806 kg Data NPU : 10/26/21 16:04 10/26/21 16:04 A&P Assessment and plan (1) Bipolar disorder, current condition not specified as either manic or depressive: Status: Acute (2) Dementia associated with other underlying disease with behavioral disturbance: Status: Acute (3) Chronic schizophrenia: Status: Acute (4) Stool incontinence: Status: Acute (5) Mild cognitive impairment: Status: Acute (6) Anxiety: Status: Acute (7) MDD (major depressive disorder): Status: Acute (8) Hypertension: Status: Acute (9) Diabetes type 2, controlled: Status: Acute Plan 65 year old white female with extended hx of mental health issues, hx of multiple hospitalizations with increase decline in functioning since move to [place] in last few months with likely history of Bipolar I disorder. Continue with acute inpatient hospitalization as improvement present both with hypomanic symptoms and depression while on Seroquel [id number] in am. Monitor for side effects of medication. Continue individual/milieu/group therapy Involuntary Hold Information 96 Hour Hold: 96 Hour Involuntary Admission: No Attestations NPU Medical Necessity Statement*: She continues to require acute inpatient hospitalization to prevent further decompensation with? likely continued stay 2-3 days.? 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
[2021-11-05 13:54] VITALS: BP 140/74; PULSE 90; RESP 17; TEMP 36.6; O2SAT 100
[2021-11-05] MEDS: quetiapine XR (24HR) 50 mg Tablet 300 MG PO (16:56)
[2021-11-05 20:17] VITALS: BP 136/93; PULSE 87; RESP 18; TEMP 36.6; O2SAT 97
[2021-11-05] MEDS: trazodone 50 mg Tablet PO (20:57)
[2021-11-06 06:00] VITALS: BP 149/72; PULSE 86; RESP 16; TEMP 36.6; O2SAT 90
[2021-11-06] MEDS: lisinopril 20 mg Tablet PO (07:46)
--- NOTE | 2021-11-06 13:09 | P.NPUPN_ITS ---
Subjective NPU Subjective: 65-year-old single white female admitted with increased confusion and a?history of mild cognitive impairment who per daughter had been engaging in?unusual behavior in the ?daughter's home including walking around the home naked along with staying up all night while speaking incessantly.? She has been compliant with treatment. She appears less confused on the milieu. She has had no reports of anxiety. She continued to minimize the reason that she had been hospitalized. She continues to remain uncertain as to whether she will go to live with her her daughter or live with a friend. She was agreeable to continuing these medications and continue to tolerate the titration of her Seroquel Exar to target manic and depressive symptoms. Mental Status Exam MSE Comments: Casually dressed white female who appeared her stated age.? She was alert and oriented to person place time and date. ? Her gait appeared slow but steady. She was engaging?in less self talk at times under her breath on the unit. Her hygiene was improved today.? Her mood was described as better ? Her affect remained flat. Her thought process was circumstantial still at times. ? Her attention span appeared improved. ? Her speech was normal in regards to rate. Persistent psychomotor retardation was present. ? Her insight was poor. Her judgment appeared improved. There was no clear evidence of delusional thinking.? Vitals/I&O/Wt Last Vital Signs Temp 97.9 F 11/06/21 06:00 Pulse 86 11/06/21 06:00 Resp 16 11/06/21 06:00 BP 149/72 11/06/21 06:00 Pulse Ox 90 11/06/21 06:00 Weight last 48 hrs Weight 86.806 kg Data NPU : 10/26/21 16:04 10/26/21 16:04 A&P Assessment and plan (1) Bipolar disorder, current condition not specified as either manic or depressive: Status: Acute (2) Dementia associated with other underlying disease with behavioral disturbance: Status: Acute (3) Chronic schizophrenia: Status: Acute (4) Anxiety: Status: Acute (5) Mild cognitive impairment: Status: Acute (6) Stool incontinence: Status: Acute Plan 65 year old white female with extended hx of mental health issues, hx of multiple hospitalizations with increase decline in functioning since move to [place] in last few months with likely history of Bipolar I disorder.? Continue with acute inpatient hospitalization as improvement continues. -Seroquel xr 300mg at 6PM Monitor for side effects of medication. Continue individual/milieu/group therapy Disposition hopefully to family with plan to set up appointment with psychiatrist in nearby area. Involuntary Hold Information 96 Hour Hold: 96 Hour Involuntary Admission: No Attestations NPU Medical Necessity Statement*: She continues to require acute inpatient h ospitalization with disposition planning with family to avoid homelessness. .? 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
[2021-11-06 14:00] VITALS: BP 108/72; PULSE 79; RESP 16; TEMP 36.9; O2SAT 97
[2021-11-06] MEDS: quetiapine XR (24HR) 50 mg Tablet 300 MG PO (16:53)
[2021-11-06 19:59] VITALS: BP 189/91; PULSE 89; RESP 18; TEMP 36.7; O2SAT 100
[2021-11-06] MEDS: trazodone 50 mg Tablet PO (20:28)
[2021-11-07 05:57] VITALS: BP 156/91; PULSE 84; RESP 17; TEMP 36.8; O2SAT 98
[2021-11-07] MEDS: lisinopril 20 mg Tablet PO (09:23)
--- NOTE | 2021-11-07 12:43 | P.NPUDS_ITS ---
Diagnoses at Discharge Discharge Diagnosis (1) Bipolar disorder, current condition not specified as either manic or depressive: Status: Acute (2) Dementia associated with other underlying disease with behavioral disturbance: Status: Acute (3) Chronic schizophrenia: Status: Acute (4) Anxiety: Status: Acute (5) Mild cognitive impairment: Status: Acute (6) Stool incontinence: Status: Acute Reason for Visit Reason for Visit: Mental eval Brief History: Tennille Barrientos is a 65 year old female who presented to the emergency department with the following report: Chief Complaint: Psychiatric Symptoms Stated Complaint: Mental eval Time Seen by Provider: 10/26/21 14:01 Source: patient and family (Daughter and son-in-law) Mode of arrival: ambulatory Limitations: no limitations History of Present Illness:?? This patient was transported to the emergency department by her family.? Her daughter and son-in-law state that over the past several months her behavior is becoming more and more erratic.? They state that she is not taking her prescribed medications as prescribed.? She currently lives with her daughter.? Daughter has transported her here for further evaluation. Patient is unclear why she is in the emergency department she thought she was coming to visit her doctor.? She denies any thoughts of self-harm.? She denies any visual or auditory hallucinations.? She does admit that she has felt depressed in the past and is have been prescribed medications.? She relates that she takes her diabetic medications and other prescribed medications as well.? She denies any other constitutional complaints at this time.? She denies alcohol or drug use.? She denies any prior hospitalizations for mental illness. Duration: changing over time and getting worse Associated symptoms: Reports depression; Deny auditory hallucinations, visual hallucinations, homicidal ideation or suicidal ideation. He was admitted to the neuropsychiatric unit for definitive treatment of those issues.She presents today reporting she doesn?t believe she needs to be here. This is a 65 year old female initially admitted voluntarily. The patient was transported to the emergency department by her family and her son and [id number] report that her behavior has been more erratic and she had been non compliant with her medications for anxiety and depression. There had been reports that she was having increased problems with her memory. She denies any thoughts of hurting herself during the interview. She denies auditory or visual hallucinations. She states that her daughter had accused her of walking around the house naked but endorses she had done nothing of the sort. She reports that she is new to [facility] and reports that she had come here approximately 6 mo nths ago to live here. She endorses having been psychiatrically hospitalized 3 or 4 times approximately 20 years ago. She was not able to elucidate the reason for her hospitalization but reports she had been treated previously for depression and anxiety. Outpatient treatment appeared significant from a recent follow up at [facility] by Zabrina Francisco in June 2021 with a history of treatment for anxiety, depression and cognitive impairment. She denies any tobacco, reports alcohol in the past, denies marijuana currently but reports she tried in the past, or any other illicit drug use. She reports she grew up in [place] most of her life until she resumed living with her daughter approximately 2 months ago. Psychiatric History: As above. Substance Abuse History: As above Family History: There is significant depression in her children but no reports of mental health or addictions issues on either side of her extended family. Developmental History: She did not report any developmental delays and denied needing any speech therapy, learning support, emotional support or special education classes. Psychosocial History: She was born in [place] and raised by both of her parents. Her father was in the [place] and she has one older sister who is a product of the same union. She graduated from high school. She has been and once, has 4 children, has never been in the , and endorses being catholic Legal History: She did not report any legal history during the interview. Medical History: Medical history is significant for diabetes and bronchitis. Surgical history is significant for tonsillectomy. She is allergic to yellow jacket stings. Hospital Course Hospital Course During the hospitalization, patient had routine laboratory studies which were within normal limits except for few outliers. Additionally there was a general medical evaluation which was also within normal limits and revealed no new acute processes. Discharge Summary: At the time of discharge, lethality was denied and psychosis was resolving. Mood and anxiety were well managed. Patient endorsed a plan to avoid all drugs of abuse and follow-up with the aftercare recommendations of the treatment team. Patient was evaluated and deemed to be absent credible lethality, and had achieved the maximum benefit from an inpatient hospitalization, so was discharged. Involuntary Hold Information 96 Hour Hold: 96 Hour Involuntary Admission: No Mental Status Exam MSE Comments: Casually dressed white female who appeared her stated age.? She was alert and oriented to person place time and date. ? Her gait appeared steady? She was engaging?in less self talk at times under her breath on the unit.? Her hygiene was improved today.? Her mood was described as better.? ? Her affect remained flat. ? Her thought process appeared more linear. ? ? Her attention span appeared improved. ? Her speech was normal in regards to rate.? There was no evidence of psychomotor agitation or psychomotor retardation.? ? Her insight was fair. Her judgment appeared improved. There was no clear? evidence of delusional thinking.? Discharge Data Studies Completed and Pending: Laboratory Results WBC 10.0 10^3/uL (4.0 -10.0) 10/26/21 16:04 RBC 5.15 10^6/uL (4.1 -5.3) 10/26/21 16:04 Hgb 15.0 g/dL (11.5-1 5.3) 10/26/21 16:04 Hct 44.7 % (37.0-47.0 ) 10/26/21 16:04 MCV 86.8 fl (81-99) 10/26/21 16:04 MCH 29.1 pg (28.0-34. 0) 10/26/21 16:04 MCHC 33.6 g/dL (30.0-3 6.0) 10/26/21 16:04 RDW 12.9 % (12.1-15.1 ) 10/26/21 16:04 Plt Count 346 10^3/cmm (130 -400) 10/26/21 16:04 MPV 10.3 fL (7.4-10.4 ) 10/26/21 16:04 Neut % (Auto) 71.3 % 10/26/21 16:04 Lymph % (Auto) 18.2 % 10/26/21 16:04 Centre % (Auto) 7.7 % 10/26/21 16:04 Eos % (Auto) 1.4 % 10/26/21 16:04 Baso % (Auto) 1.1 % 10/26/21 16:04 Neut # (Auto) 7.10 10^3/uL (1.8 -7.7) 10/26/21 16:04 Lymph # (Auto) 1.8 10^3/uL (0.8- 4.8) 10/26/21 16:04 Centre # (Auto) 0.8 10^3/uL (0.2- 0.9) 10/26/21 16:04 Eos # (Auto) 0.1 10^3/uL (0.0- 0.8) 10/26/21 16:04 Baso # (Auto) 0.1 10^3/uL (0.0- 0.1) 10/26/21 16:04 Nucleated RBC % (a uto) 0 % 10/26/21 16:04 Nucleated RBCs # 0.0 /100WBC 10/26/21 16:04 Sodium 139 mmol/L (136-1 45) 10/26/21 16:04 Potassium 4.3 mmol/L (3.5-5 .1) 10/26/21 16:04 Chloride 106 mmol/L (98-10 7) 10/26/21 16:04 Carbon Dioxide 21 mmol/L (22-29) L 10/26/21 16:04 Anion Gap 16.3 (5-19) 10/26/21 16:04 BUN 15 mg/dL (8-23) 10/26/21 16:04 Creatinine 0.8 mg/dL (0.5-0. 9) 10/26/21 16:04 GFR Calculation 72.2 mL/min (90-1 30) L 10/26/21 16:04 Glucose 144 mg/dL (65-115 ) H 10/26/21 16:04 Calculated Osmolal ity 291 mOsm/kg (285- 295) 10/26/21 16:04 Calcium 10.1 mg/dL (8.5-1 0.5) 10/26/21 16:04 Total Bilirubin 0.2 mg/dL (0.15-1 .2) 10/26/21 16:04 AST 16 U/L (0-32) 10/26/21 16:04 ALT 16 U/L (0-33) 10/26/21 16:04 Alkaline Phosphata se 71 IU/L (35-105) 10/26/21 16:04 Total Protein 7.7 g/dL (6.6-8.7 ) 10/26/21 16:04 Albumin 4.2 g/dL (3.5-5.2 ) 10/26/21 16:04 Globulin 3.5 g/dL (1.3-4.6 ) 10/26/21 16:04 TSH 2.15 uIU/mL (0.27 -4.20) 10/26/21 16:04 Salicylates < 0.3 mg/dL (3-10 ) L 10/26/21 16:04 Acetaminophen < 5.0 ug/mL (10-3 0) L 10/26/21 16:04 Vitals: Last Vital Signs Temp 98.2 F 11/07/21 05:57 Pulse 84 11/07/21 05:57 Resp 17 11/07/21 05:57 BP 156/91 11/07/21 05:57 Pulse Ox 98 11/07/21 05:57 Discharge Plan Discharge Patient Disposition: Home Condition: Stable Prescriptions: New quetiapine 50 mg Tablet Extended Release 24 Hr 300 mg PO 1800 Qty: 150 1RF Continued metformin 500 mg tablet 500 mg PO DAILY Qty: 30 5RF lisinopril 20 mg tablet 10 mg PO DAILY Qty: 30 3RF Discontinued quetiapine 200 mg tablet 200 mg PO .HS 30 Days Qty: 30 3RF bupropion HCl 150 mg tablet extended release 24 hr 150 mg PO QAM 30 Days Qty: 30 3RF fluoxetine 40 mg capsule 40 mg PO QAM Qty: 30 3RF No Action (DME) blood-glucose meter Misc See Rx Instructions .Route Qty: 1 0RF Rx Instructions: As directed once daily (DME) Accu-Chek Guide test strips Strip See Rx Instructions .Route Qty: 50 0RF Rx Instructions: As directed, TEST BLOOD SUGAR, ONCE, DAILY. (DME) lancets [BD Ultra Fine Lancets] 33 gauge misc See Rx Instructions .Route Qty: 100 0RF Rx Instructions: As directed, TEST BLOOD SUGAR, ONCE, DAILY. Discharge Orders: Discharge Order (Routine); Ordered 11/07/21 Ordered By: Adrian Chavez Referrals: Zabrina Pak MD [[facility]] - 11/09/21 2:15 pm (Appointment is at 11/09/21@ @ 2:30 PM -needs to check-in at 2:15 PM for nurse appointment.) Yaya Gómez MD [Primary Care Provider] - Discharge Diet: Advance as tolerated Discharge Activity: Resume usual activity Patient Instructions: Quetiapine (By mouth) (Seroquel, Seroquel XR, Seroquel XR 14-Day..., Bipolar Disorder (DC), Schizophrenia (DC), Dementia (GEN), Anxiety (DC), Opioid Safety Discharge Attestations NPU Time Spent in Discharge Care*: less than 30 min Coding Level of Care Code Established Pt Acute Chg FW DC note Patient Type Established History Problem Focused Exam Problem Focused Medical Decision Making Straight Forward Diagnoses Bipolar disorder, current condition not specified as either manic or depressive F34.0 Dementia associated with other underlying disease with behavioral disturbance F02.81 Chronic schizophrenia F20.9 Anxiety F41.9 Mild cognitive impairment G31.84 Stool incontinence R15.9
[2021-11-07 12:52] VITALS: BP 156/91; PULSE 84; RESP 17; TEMP 36.8; O2SAT 98
== END 2021-11-07 13:25 | disposition home or self-care (01) | DRG 885 ==
LOC: ER 17:29 → NP 17:57
PROVIDERS: Admitting Provider Psychiatry & Neurology Psychiatry; Emergency Provider Emergency Medicine; PCP Family Medicine Adult Medicine; Visit Provider Psychiatry & Neurology Psychiatry
DX: F31.9 Bipolar disorder, unspecified (principal); F03.91 Unspecified dementia, unspecified severity, with behavioral disturbance; F20.9 Schizophrenia, unspecified; Z91.14 Patient's other noncompliance with medication regimen; E11.9 Type 2 diabetes mellitus without complications; I10 Essential (primary) hypertension; Z79.84 Long term (current) use of oral hypoglycemic drugs
CPT/HCPCS: 80053; 80307; 84443; 85025; 97150; 97165; 99285